=== PATIENT | female | born 1960 | race Caucasian/White ===

== ENCOUNTER 2017-03-08 12:38 | Inpatient (IN) | payer BC, OTHER ==
[2017-03-07 11:59] LABS: PATH.CAST-FLAG NOT PRESENT; SPERM-FLAG NOT PRESENT; SRC-FLAG NOT PRESENT; XTAL-FLAG NOT PRESENT; YLC-FLAG NOT PRESENT
[~2017-03-08] VITALS: Ht 170.2 cm; Wt 63.3 kg
[~2017-03-08 12:38] MED LIST: CITA20TA5 PO; ESTR1TAB99 PO; FOLI1TAB44 PO; MONT10TA6 PO; NITR100C6 PO
[2017-03-08] MEDS ORDERED: FLUORESCEIN SODIUM 500 MG/5 ML ONE (12:41)
[2017-03-08] MEDS ORDERED: HEPARIN 1,000 UNITS/ML, 10ML ONE (12:41)
[2017-03-08] MEDS ORDERED: LACTATED RINGERS 1,000 ML IV SCH (12:59)
[2017-03-08 13:31] VITALS: BP 99/65
[2017-03-08] MEDS ORDERED: SCOPOLAMINE PATCH, 1MG PATCH.TD72 TD ONE (14:07)
[2017-03-08] MEDS ORDERED: MIDAZOLAM 1 MG/ML, 2ML ONE (14:11)
[2017-03-08] MEDS ORDERED: FENTANYL PF 250 MCG/5ML ONE (14:12)
[2017-03-08] MEDS ORDERED: ROCURONIUM 10 MG/ML ONE (14:15)
[2017-03-08] MEDS ORDERED: CEFAZOLIN 1,000 MG ONE (14:15)
[2017-03-08] MEDS ORDERED: NEOSTIGMINE 1 MG/ML, 10ML ONE (14:15)
[2017-03-08] MEDS ORDERED: PROPOFOL 10 MG/ML, 20ML ONE (14:15)
[2017-03-08] MEDS ORDERED: GLYCOPYRROLATE 0.2MG/1ML, 5ML ONE (14:15)
[2017-03-08] MEDS ORDERED: DEXAMETHASONE 4 MG/ML, 1ML ONE (14:15)
[2017-03-08] MEDS ORDERED: ONDANSETRON 2MG/ML, 2ML ONE (14:15)
[2017-03-08] MEDS ORDERED: SUCCINYLCHOLINE 20 MG/ML, 10ML ONE (14:15)
[2017-03-08] MEDS ORDERED: EPHEDRINE 50 MG/ML, 1ML ONE (14:42)
[2017-03-08] MEDS ORDERED: KETOROLAC 30 MG/1 ML ONE (14:43)
[2017-03-08] MEDS ORDERED: ACETAMINOPHEN 650 MG/20.3 ML UDC ONE (16:32)
[2017-03-08] MEDS ORDERED: FENTANYL PF 100 MCG/2ML ONE ×2 (16:32→16:52)
[2017-03-08] MEDS ORDERED: OXYcodone 5 MG/5 ML ORAL.SOL UDC ONE (16:33)
[2017-03-08] MEDS: FENTANYL PF 100 MCG/2ML IV PRN ×2 (16:35→16:45)
[2017-03-08] MEDS ORDERED: MEPERIDINE/PF 25MG/0.5ML ONE (16:42)
[2017-03-08] MEDS ORDERED: HYDROmorphone 1 MG/ML, 1ML ONE (16:52)
[2017-03-08] MEDS ORDERED: MEPERIDINE/PF 100 MG/ML IM PRN (18:00)
[2017-03-08] MEDS: HYDROmorphone 2 MG/ML, 1ML IV PRN ×2 (18:00→20:54)
[2017-03-08] MEDS: POTASSIUM CHLORIDE 20 MEQ in D5%-LACTATED RINGERS 1,000 ML IV SCH (18:22)
[2017-03-08] MEDS ORDERED: ACETAMINOPHEN 325 MG TABLET PO PRN (18:30)
[2017-03-08] MEDS ORDERED: MEPERIDINE/PF 25MG/0.5ML IVPush PRN (18:30)
[2017-03-08] MEDS ORDERED: HYDROmorphone 1 MG/ML, 1ML IV PRN (18:30)
[2017-03-08] MEDS ORDERED: OXYcodone 5 MG/5 ML ORAL.SOL UDC PO PRN (18:30)
[2017-03-08 19:31] VITALS: BP 112/76
[2017-03-08] MEDS: SIMETHICONE 80 MG CHEW TAB PO SCH (20:53)
[2017-03-08] MEDS: ONDANSETRON 2MG/ML, 2ML IV PRN (20:53)
[2017-03-08] MEDS: KETOROLAC 30 MG/1 ML IV SCH (22:36)
[2017-03-09 00:11] VITALS: BP 104/63
[2017-03-09] MEDS: POTASSIUM CHLORIDE 20 MEQ in D5%-LACTATED RINGERS 1,000 ML IV SCH ×2 (02:27→12:57)
[2017-03-09] MEDS: HYDROmorphone 2 MG/ML, 1ML IV PRN (02:34)
[2017-03-09] MEDS: ONDANSETRON 2MG/ML, 2ML IV PRN (02:41)
[2017-03-09 04:03] VITALS: BP 101/58
[2017-03-09] MEDS: KETOROLAC 30 MG/1 ML IV SCH ×3 (04:15→16:06)
[2017-03-09 04:59] LABS: HEMOGLOBIN 12.4 g/dL (11.7-16.4)
[2017-03-09] MEDS ORDERED: OXYcodone 5 MG/5 ML ORAL.SOL UDC PO PRN (06:00)
[2017-03-09 07:45] VITALS: BP 96/45
[2017-03-09] MEDS: SIMETHICONE 80 MG CHEW TAB PO SCH ×2 (09:41→15:32)
[2017-03-09 14:15] VITALS: BP 92/57
[2017-03-09] MEDS ORDERED: OXYC5TAB2 PO (17:27)
[2017-03-09] MEDS ORDERED: IBUP-1222 PO (17:28)
[2017-03-09] MEDS ORDERED: ESTR1TAB15 PO (17:29)
[2017-03-09] MEDS ORDERED: SIME80TA16 PO (17:31)
[2017-03-09 17:45] VITALS: BP 104/67
[2017-03-10] MEDS ORDERED: IBUPROFEN 600 MG TABLET PO SCH (06:00)
== END 2017-03-09 18:10 | disposition home or self-care (01) | DRG 743 ==
LOC: OUT 12:38 → 4NOR 17:29 → OUT 17:30 → 4NOR 17:30
PROVIDERS: ADMIT Specialist; ATTEND Specialist
PROC: 0UT60ZZ Resection of Left Fallopian Tube, Open Approach (ICD-10-PCS; 2017-03-08)
PROC: 0UT10ZZ Resection of Left Ovary, Open Approach (ICD-10-PCS; 2017-03-08)
PROC: 0UT90ZL Resection of Uterus, Supracervical, Open Approach (ICD-10-PCS; principal; 2017-03-08 14:30)
DX: D27.1 Benign neoplasm of left ovary (principal)
CPT/HCPCS: 36415; 81001; 85014; 85018; 87086; 88307; C1729; J0690; J1100; J1170; J1644; J1885; J2175; J2250; J2405; J2704; J2710; J3010; J3480; J3490; C1765; J0330; J7120; J7121

== ENCOUNTER 2017-09-03 07:03 | Day surgery (SDC) | payer BC ==
[~2017-09-03] VITALS: Ht 170.2 cm; Wt 63.9 kg
[~2017-09-03 07:03] MED LIST changes: +BUPIVACAINE/PF 0.5% ONE; +ESTR1TAB15 PO; +IBUP-1222 PO; +OXYC5TAB2 PO; +SIME80TA16 PO
[2017-09-03 10:29] VITALS: BP 101/66
[2017-09-03] MEDS ORDERED: FENTANYL PF 100 MCG/2ML ONE (10:53)
[2017-09-03] MEDS ORDERED: MIDAZOLAM 1 MG/ML, 2ML ONE (10:53)
[2017-09-03] MEDS ORDERED: LACTATED RINGERS 1,000 ML IV SCH (10:54)
[2017-09-03] MEDS ORDERED: DEXAMETHASONE 4 MG/ML, 5ML ONE (11:17)
[2017-09-03] MEDS ORDERED: CEFAZOLIN 1,000 MG ONE (11:17)
[2017-09-03] MEDS ORDERED: LIDOCAINE-MPF 2% ,5ML ONE (11:17)
[2017-09-03] MEDS ORDERED: ONDANSETRON 2MG/ML, 2ML ONE (11:17)
[2017-09-03] MEDS ORDERED: PROPOFOL 10 MG/ML, 20ML ONE (11:17)
[2017-09-03] MEDS ORDERED: PROMETHAZINE 25 MG/ML, 1ML IV PRN (12:00)
[2017-09-03] MEDS ORDERED: FENTANYL PF 100 MCG/2ML IV PRN (12:00)
[2017-09-03] MEDS ORDERED: hydrALAzine 20 MG/ML, 1ML IV PRN (12:00)
[2017-09-03] MEDS ORDERED: ALBUTEROL SULFATE 2.5 MG/3 ML NPPB PRN (12:00)
[2017-09-03] MEDS ORDERED: OXYcodone 5 MG/5 ML ORAL.SOL UDC PO PRN (12:00)
[2017-09-03] MEDS ORDERED: morphine SULFATE 10 MG/ML, 1ML IV PRN (12:00)
[2017-09-03] MEDS ORDERED: PROMETHAZINE 12.5 MG SUPP PR PRN (12:00)
[2017-09-03] MEDS ORDERED: LABETALOL 5MG/ML, 20ML IV PRN (12:00)
[2017-09-03] MEDS ORDERED: LORazepam 2 MG/ML, 1ML IVPush PRN (12:00)
[2017-09-03] MEDS ORDERED: ACETAMINOPHEN 325 MG TABLET PO PRN (12:00)
[2017-09-03] MEDS ORDERED: MEPERIDINE/PF 25MG/0.5ML IVPush PRN (12:00)
== END 2017-09-03 13:45 ==
LOC: CFH 07:03 → OUT 13:45
PROVIDERS: ATTEND Surgery
DX: N60.11 Diffuse cystic mastopathy of right breast (principal); Z90.710 Acquired absence of both cervix and uterus; Z98.890 Other specified postprocedural states
CPT/HCPCS: 19120; 19281; 76641; 88307; J0690; J1100; J2250; J2405; J2704; J3010; J3490; J7120; 88305

== ENCOUNTER → 2018-10-14 | Outpatient (CLI) | payer BC ==
[~2018-10-14] MED LIST changes: -BUPIVACAINE/PF 0.5% ONE; -CITA20TA5 PO; +CITA20TA6 PO
== END | disposition home or self-care (01) ==
LOC: CFH 12:14
PROVIDERS: ATTEND Surgery
DX: R92.0 Mammographic microcalcification found on diagnostic imaging of breast (principal)
CPT/HCPCS: 77066